=== PATIENT | female | born 1960 | race African-American/Black ===

== ENCOUNTER 2016-06-28 08:03 | Emergency (ER) | payer MEDICAID ==
[~2016-06-28] VITALS: Ht 170.2 cm; Wt 86.2 kg
[~2016-06-28 08:03] MED LIST: ALBU8.5H2 IH; AMOX500C2 PO; AMOX500T2 PO; ASP81CT PO; ASP81TEC PO; AZIT250T PO; AZTH250C PO; CEFD300C PO; CLOP75TA PO; CYCL10TA9 PO; DCS100C PO; DICY10CA26 PO; DICY20TA57 PO; DOXY100C2 PO; Flexeril PO; HYDR-34 PO; HYDR1TAB3 PO; HYDR25CA5 PO; ISM30TCR PO; LISI10TA PO; LISI5TAB PO; LOSA50TA6 PO; METH4TAB PO; METO-272 PO; MUPI15CR TP; NEO/5DRO3 OP; NITR0.4T39 SL; NTR.4SL SL; POLY17PO23 GT; PRCD5U PO; PRD20T PO; PRD50T PO; RT-ALBUINH IH; SIMV10TA3 PO; SODI104S3 NS; TRAM50TA2 PO
[2016-06-28] MEDS ORDERED: METF500T4 PO (08:26)
[2016-06-28] MEDS ORDERED: LIDOCAINE PF 1% 5 ML (XYLOCAINE) AMP ONE (08:52)
[2016-06-28] MEDS ORDERED: LIDOCAINE PF 1% 5 ML (XYLOCAINE) AMP INJ ONE (09:45)
--- NOTE | 2016-06-28 10:02 | ED Integumentary General ---
General Chief Complaint: Bite-Animal/Human/Insect Stated Complaint: POSS SPIDER BITE RIGHT SHOULDER COLD SYMPTOMS Nursing Triage Note: PT STATES HAVING A SPIDER BITE ON RT ANTERIOR SHOULDER, PAINFUL, SWOLLEN AND RED. Source: patient Exam Limitations: no limitations History of Present Illness Time seen by provider: 09:56 Initial Comments To put a gauze pad that what will be replaced the patient is a 55-year-old black female who reports a painful swollen area on her right shoulder. This has been increasing in size and discomfort for several days. There is been no drainage to this point. She is a type II diabetic on oral therapy. 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 Timing/Duration: week, getting worse Location: torso Possible Cause: no cause identified Allergies and Home Medications Allergies Coded Allergies: No Known Drug Allergies (Unverified , 04/23/10) Home Medications Aspirin 81 Mg Tabec 81 MG PO DAILY (Reported) Clopidogrel Bisulfate 75 Mg Tablet 75 MG PO DAILY (Reported) Isosorbide Mononitrate 30 Mg Tab #30 30 MG PO DAILY@0630 Prescribed by: VADIM DRAPER on 06/14/13 1507 Losartan Potassium 50 Mg Tablet 50 MG PO DAILY (Reported) Metformin HCl 500 Mg Tablet 500 MG PO BID (Reported) Metoprolol Succinate 50 Mg Tab.sr.24h 50 MG PO DAILY (Reported) Nitroglycerin 0.4 Mg Tab.subl 0.4 MG SL (Reported) Simvastatin 10 Mg Tablet 10 MG PO HS (Reported) Constitutional: see HPI EENTM: no symptoms reported Respiratory: no symptoms reported Cardiovascular: no symptoms reported Gastrointestinal: no symptoms reported Genitourinary: no symptoms reported Musculoskeletal: no symptoms reported Skin: see HPI Psychiatric/Neurological: No Symptoms Reported Endocrine: No Symptoms Reported Past Tadoxqs-Smnloq-Bvtkhx Hx Patient Social History Alcohol Use: Denies Use Recreational Drug Use: No (SMOKES 1/2 PPD) Smoking Status: Current Everyday Smoker Type Used: Cigarettes Former Smoker/When Quit: Jun 19, 2013 Recent Foreign Travel: No Contact w/Someone Who Travel: No Recent Infectious Disease Expo: No Recent Hopitalizations: No (HX OF stroke, heart attack, stents) Physical Abuse Screen: No Sexual Abuse: No Immunizations Up To Date Tetanus Booster (TDap): Less than 5yrs Date of Pneumonia Vaccine: Mar 03, 2013 Date of Influenza Vaccine: Mar 07, 2016 Seasonal Allergies Seasonal Allergies: No Surgeries HX Surgeries: Yes (Back surgery) Surgeries: Coronary Stent Respiratory Hx Respiratory Disorders: Yes Respiratory Disorders: Chronic Bronchitis Cardiovascular Hx Cardiac Disorders: Yes (STENT AND BALLOON) Cardiac Disorders: Heart Attack, High Cholesterol, Hypertension Neurological Hx Neurological Disorders: Yes (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) Neurological Disorders: Stroke Reproductive System Hx Reproductive Disorders: No Sexually Transmitted Disease: No Female Reproductive Disorders: Denies 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 Genitourinary Hx Genitourinary Disorders: No Gastrointestinal Hx Gastrointestinal Disorders: Yes Gastrointestinal Disorders: Chronic Constipation Musculoskeletal Hx Musculoskeletal Disorders: Yes (herniated disc with three surgeries) Musculoskeletal Disorders: Chronic Back Pain Endocrine Hx Endocrine Disorders: Yes Endocrine Disorders: Diabetes, Non-Insulin dep HEENT HX ENT Disorders: Yes (Cavities) HEENT Disorders: Cataract Hearing Impairment: Hard of Hearing Cancer Hx Cancer: No Psychosocial Hx Psychiatric Problems: Yes Behavioral Health Disorders: Sleep Difficulties Integumentary HX Skin/Integumentary Disorder: No Blood Transfusions Hx Blood Disorders: Yes (anemia) Family Medical History Significant Family History: No Pertinent Family Hx Physical Exam Vital Signs Vital Sign - Last 12Hours 06/28/16 08:12 Temp 97.2 Pulse 95 Resp 20 B/P 123/77 Pulse Ox 96 O2 Delivery Room Air Capillary Refill : Less Than 3 Seconds General Appearance: mild distress HEENT: normal ENT inspection Neck: full range of motion Cardiovascular: normal peripheral pulses regular rate, rhythm no edema no gallop no JVD no murmur Respiratory: chest non-tender lungs clear normal breath sounds no respiratory distress no accessory muscle use Comments There is a 5 cm cylindrical lesion oriented vertically inferior to the right distal clavicle. It is red warm and tender to touch. There is no open drainage site at this point. There is no streaking I&D : Blade Size: 11 I & D Procedure: betadine prep sterile dressing applied gauze wick placed Wound Packing Packing/Drain: Idoform 06/06 Progress The lesion was prepped with Hibiclens. It was anesthetized with 2 mL of 1 percent Xylocaine through a 25-gauge needle. After sufficient time for local anesthesia it was incised with a 11 scalpel blade. A thick creamy yellow-green non-odiferous material was expressed and cultured. The wound was probed with a hemostat. It was then packed with 8 inches or more of 1/4 inch iodoform gauze. 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 Progress/Results/Core Measures Results/Orders My Orders Orders-SOLEDAD FRIEDMAN MD Lidocaine Pf 1% 5 Ml Injection (Xylocain (06/28/16 08:52) Lidocaine Pf 1% 5 Ml Injection (Xylocain (06/28/16 09:45) Medications Given in ED Current Medications Medications Dose Ordered Sig/Kaylee Route Start Time Stop Time Status Last Admin Dose Admin Lidocaine HCl 5 ml STK-MED ONCE .ROUTE 06/28/16 08:52 06/28/16 08:59 DC 06/28/16 09:46 5 ML Vital Signs/I&O Vital Sign - Last 12Hours 06/28/16 08:12 Temp 97.2 Pulse 95 Resp 20 B/P 123/77 Pulse Ox 96 O2 Delivery Room Air Blood Pressure Mean: 92 Departure Impression Impression: Primary Impression: abscess right upper anterior chest Disposition: HOME, SELF-CARE Condition: Stable/Unchanged Departure-Patient Inst. Decision time for Depature: 10:03 Referrals: GUILLE WEST MD (PCP/Family) Primary Care Physician Patient Instructions: Methicillin-Resistant Staphylococcus aureus (MRSA) Add. Discharge Instructions: All discharge instructions reviewed with patient and/or family. Voiced understanding. Take Bactrim as ordered. Keep clean and dry After 48 hours begin to remove 1 inch of packing daily. Keep wound covered with the gauze for before provided you Scripts Sulfamethoxazole/Trimethoprim (Bactrim Ds Tablet)1 Each Tablet1 Each PO twice a day #20 TAB Prov:SOLEDAD FRIEDMAN MD 06/28/16 SOLEDAD FRIEDMAN MD Jun 28, 2016 10:02
[2016-06-28] MEDS ORDERED: SULF1TAB35 PO (10:05)
[2016-06-28 10:26] VITALS: BP 120/77
== END 2016-06-28 10:25 | disposition home or self-care (01) ==
LOC: EDUNIT# 08:03 → ER 08:06
DX: L02.213 Cutaneous abscess of chest wall (principal); E11.9 Type 2 diabetes mellitus without complications; I10 Essential (primary) hypertension; F17.210 Nicotine dependence, cigarettes, uncomplicated; Z79.84 Long term (current) use of oral hypoglycemic drugs; Z79.82 Long term (current) use of aspirin; Z79.02 Long term (current) use of antithrombotics/antiplatelets; Z79.899 Other long term (current) drug therapy; Z95.5 Presence of coronary angioplasty implant and graft
CPT/HCPCS: 10061; 87070; 87205

== ENCOUNTER → 2017-01-07 | Outpatient (CLI) | payer MEDICAID ==
[~2017-01-07] MED LIST changes: +METF500T4 PO; +SULF1TAB35 PO
--- NOTE | 2017-01-08 19:25 | Diagnostic Imaging Report ---
EXAM: Bilateral screening mammogram 2D views with tomosynthesis The current study was also evaluated with a Computer Aided Detection (CAD) system. Indication: Screening. No current complaints stated on the questionnaire. COMPARISON: None. FINDINGS: The breasts are composed of heterogeneously dense parenchyma which may decrease mammographic sensitivity. There is a 1.3 cm mass in the outer aspect of the right breast with circumscribed margins. This could be a cyst or a fibroadenoma based on its smooth margins. The left breast demonstrates an asymmetry along the central aspect of the CC projection and the central posterior aspect of the left MLO view. Focal compression views and ultrasound evaluation are recommended. IMPRESSION: 1. Circumscribed 1.3 cm right breast mass is favored to be benign. Ultrasound evaluation recommended. 2. Focal compression views to central asymmetries in the left CC and left MLO views with ultrasound evaluation are recommended. BI-RADS 0. ACR BI-RADS Category 0: Incomplete. (Needs additional imaging evaluation). Result letter will be mailed to the patient. Note: At least 10% of breast cancer is not imaged by mammography. Dictated by: Dictated on workstation # [id number]
== END ==
LOC: RAD 09:30
PROVIDERS: ATTEND Family Medicine
DX: Z12.31 Encounter for screening mammogram for malignant neoplasm of breast (principal)
CPT/HCPCS: 77067

== ENCOUNTER → 2017-08-25 | Outpatient (CLI) | payer MEDICAID ==
[2017-08-25 12:48] LABS: ALANINE AMINOTRANSFERASE 7 U/L (0-55); ALBUMIN 4.2 GM/DL (3.2-4.5); ALKALINE PHOSPHATASE 91 U/L (40-136); BILIRUBIN,TOTAL 0.5 MG/DL (0.1-1.0); BUN/CREATININE RATIO 10; CALCIUM 9.4 MG/DL (8.5-10.1); CARBON DIOXIDE 28 MMOL/L (21-32); CHLORIDE 107 MMOL/L (98-107); CHOLESTEROL 102 MG/DL (< 200); CREATININE SERUM 0.77 MG/DL (0.60-1.30); GFR ESTIMATED > 60; GLUCOSE 86 MG/DL (70-105); HDL CHOLESTEROL 35 MG/DL (40-60); POTASSIUM 4.2 MMOL/L (3.6-5.0); SODIUM 143 MMOL/L (135-145); TOTAL PROTEIN 7.3 GM/DL (6.4-8.2); TRIGLYCERIDES 101 MG/DL (<150); VLDL CHOLESTEROL 20 MG/DL (5-40)
== END ==
LOC: LAB 11:56
PROVIDERS: ATTEND Internal Medicine Cardiovascular Disease
DX: E78.5 Hyperlipidemia, unspecified (principal)
CPT/HCPCS: 36415; 80053; 80061

== ENCOUNTER → 2018-03-26 | Outpatient (CLI) | payer MEDICAID ==
[~2018-03-26] MED LIST changes: +METF-397 PO; -METF500T4 PO
--- NOTE | 2018-03-26 19:34 | Diagnostic Imaging Report ---
INDICATION: Right breast mass. This study is performed for further evaluation. Correlation is made with diagnostic mammogram from 03/26/2018 and screening mammogram from 01/07/2017. FINDINGS: There is a circumscribed, ovoid, solid-appearing mass at the 9 o'clock location of the right breast, 10 cm from the nipple. This measures 1.7 x 0.7 x 1.4 cm. No internal vascularity is seen. The lesion does appear to be wider than it is tall. Features are most suggestive of a fibroadenoma. No other masses are seen. IMPRESSION: Ovoid, solid circumscribed mass at the 9 o'clock location of the right breast, corresponding to the mammographic abnormality. This has benign features and is most suggestive of a fibroadenoma. Even so, follow-up right breast ultrasound in six months is recommended to confirm stability. ACR BI-RADS Category 3: Probably benign findings. Dictated by: Dictated on workstation # [id number]
--- NOTE | 2018-03-26 20:00 | Diagnostic Imaging Report ---
INDICATION: Abnormal screening mammogram 01/07/2017. Additional views were recommended, but the patient did not return. Patient presents today for follow-up. Correlation is made with prior mammogram from 01/07/2017. 2-D and 3-D bilateral diagnostic mammography was performed with computer-aided detection (CAD) system. FINDINGS: Both breasts are heterogeneously dense, limiting the sensitivity of mammography. Circumscribed mass in the outer portion of the right breast posterior depth is seen measuring 17 mm in size. This does have benign features. There are tiny nodules in both breasts which have the appearance of intraparenchymal lymph nodes. No suspicious calcifications are seen. The questionable asymmetric density in the left breast centrally does not persist on today's imaging and no additional imaging is recommended of the left breast. The axillae are unremarkable. IMPRESSION: Circumscribed mass outer right breast posterior depth, likely a cyst or fibroadenoma. Further evaluation with ultrasound is recommended. ACR BI-RADS Category 0: Incomplete. (Needs additional imaging evaluation). Result letter will be mailed to the patient. Note: At least 10% of breast cancer is not imaged by mammography. Dictated by: Dictated on workstation # [id number]
== END ==
LOC: RAD 13:24
PROVIDERS: ATTEND Family Medicine
DX: N63.10 Unspecified lump in the right breast, unspecified quadrant (principal)
CPT/HCPCS: 77066

== ENCOUNTER → 2018-05-06 | Outpatient (CLI) | payer MEDICAID ==
[~2018-05-06] VITALS: Ht 167.6 cm; Wt 81.6 kg
[~2018-05-06] MED LIST changes: +CATHETER FLUSH 10 ML SYR IV PRN; +REGADENOSON 0.4 MG/5 ML SYR (LEXISCAN) IV ONE
[2018-05-06 08:54] VITALS: BP 155/87
[2018-05-06 08:58] VITALS: BP 160/87
== END ==
LOC: CARD 07:12
PROVIDERS: ATTEND Internal Medicine Cardiovascular Disease
DX: I25.10 Atherosclerotic heart disease of native coronary artery without angina pectoris (principal); I77.89 Other specified disorders of arteries and arterioles; E11.9 Type 2 diabetes mellitus without complications; E78.5 Hyperlipidemia, unspecified; I10 Essential (primary) hypertension; Z72.0 Tobacco use
CPT/HCPCS: 78452; 93017